=== PATIENT | female | born 1985 | race Caucasian/White ===

== ENCOUNTER 2019-12-23 11:43 | Inpatient (IN) | payer OTHER ==
[~2019-12-23] VITALS: Ht 170.2 cm; Wt 70.8 kg
[2019-12-23] MEDS ORDERED: PRENATAL CAPLE1 EAC1 PO (13:11)
== END 2019-12-25 13:12 | DRG 833 ==
LOC: NST 11:43 → LDR 12:34 → OB/GYN 12:34
PROVIDERS: ADMIT Obstetrics & Gynecology Maternal & Fetal Medicine; ATTEND Obstetrics & Gynecology Maternal & Fetal Medicine
PROC: 4A0HXFZ Measurement of Products of Conception, Cardiac Rhythm, External Approach (ICD-10-PCS; principal; 2019-12-23)
PROC: BY4FZZZ Ultrasonography of Third Trimester, Single Fetus (ICD-10-PCS; 2019-12-24)
PROC: BY4FZZZ Ultrasonography of Third Trimester, Single Fetus (ICD-10-PCS; 2019-12-24)
PROC: 4A0HXFZ Measurement of Products of Conception, Cardiac Rhythm, External Approach (ICD-10-PCS; 2019-12-24)
DX: O60.03 Preterm labor without delivery, third trimester (principal); Z3A.33 33 weeks gestation of pregnancy; Z20.828 Contact with and (suspected) exposure to other viral communicable diseases

== ENCOUNTER → 2019-12-29 | Outpatient (CLI) | payer OTHER ==
[~2019-12-29] MED LIST: PRENATAL CAPLE1 EAC1 PO
== END | disposition home or self-care (01) ==
LOC: NST 11:14
PROVIDERS: ATTEND Obstetrics & Gynecology
DX: Z34.83 Encounter for supervision of other normal pregnancy, third trimester (principal)

== ENCOUNTER 2020-01-23 12:30 | Inpatient (IN) | payer OTHER ==
[~2020-01-23] VITALS: Ht 170.2 cm; Wt 73.0 kg
[2020-02-02] MEDS ORDERED: ZYRTEC10 M3 PO (05:16)
== END 2020-02-04 13:14 | disposition home or self-care (01) | DRG 807 ==
LOC: LDR 02-02 05:00 → OB/GYN 02-02 18:39 → LDR 02-09 12:30
PROVIDERS: ADMIT Obstetrics & Gynecology; ATTEND Obstetrics & Gynecology
PROC: 10E0XZZ Delivery of Products of Conception, External Approach (ICD-10-PCS; principal; 2020-02-02)
PROC: 0UQMXZZ Repair Vulva, External Approach (ICD-10-PCS; 2020-02-02)
PROC: 4A1HXFZ Monitoring of Products of Conception, Cardiac Rhythm, External Approach (ICD-10-PCS; 2020-02-02)
DX: O71.82 Other specified trauma to perineum and vulva (principal); Z37.0 Single live birth; Z3A.39 39 weeks gestation of pregnancy; Z20.828 Contact with and (suspected) exposure to other viral communicable diseases